=== PATIENT | female | born 1960 | race American Indian/Alaskan Native ===

== ENCOUNTER 2016-12-29 14:07 | Outpatient (CLI) | payer BC ==
--- NOTE | 2016-12-30 08:02 | Mammography Report ---
BILATERAL DIGITAL SCREENING MAMMOGRAM with CAD: 12/29/16 14:07:00 CLINICAL: Routine screening. COMPARISON:06/21/14 left mammogram. FINDINGS: The breasts are almost entirely fatty. No mass, architectural distortion or suspicious calcifications. IMPRESSION: No mammographic evidence of malignancy. BI-RADS CATEGORY: 1 - - Negative RECOMMENDATION: Routine mammographic screening in one year. COMMENT: Patient follow-up letters are generated by our [employer] application.
== END 2016-12-29 14:08 | disposition home or self-care (01) ==
LOC: MAMMO 14:07
PROVIDERS: ATTEND Internal Medicine
DX: Z12.31 Encounter for screening mammogram for malignant neoplasm of breast (principal)
CPT/HCPCS: 77067; G0202

== ENCOUNTER 2018-02-15 12:23 | Outpatient (CLI) | payer BC ==
--- NOTE | 2018-02-15 14:23 | Mammography Report ---
BILATERAL DIGITAL SCREENING MAMMOGRAM with CAD: 02/15/18 12:23:00 CLINICAL: Routine screening. COMPARISON:12/29/16 FINDINGS: The breasts are mostly fatty. No mass, architectural distortion or suspicious calcifications. IMPRESSION: No mammographic evidence of malignancy. BI-RADS CATEGORY: 1 - - Negative RECOMMENDATION: Routine mammographic screening in one year. COMMENT: Patient follow-up letters are generated by our [employer] application.
== END 2018-02-15 12:24 | disposition home or self-care (01) ==
LOC: MAMMO 12:23
PROVIDERS: ATTEND Internal Medicine
DX: Z12.31 Encounter for screening mammogram for malignant neoplasm of breast (principal)
CPT/HCPCS: 77067

== ENCOUNTER 2019-03-08 13:36 | Outpatient (CLI) | payer BC ==
--- NOTE | 2019-03-09 09:05 | Mammography Report ---
BILATERAL DIGITAL SCREENING MAMMOGRAM with CAD: 03/08/19 13:36:00 CLINICAL: Routine screening. COMPARISON:02/15/18 FINDINGS: The breasts are almost entirely fatty. No mass, architectural distortion or suspicious calcifications. IMPRESSION: No mammographic evidence of malignancy. BI-RADS CATEGORY: 1 - - Negative RECOMMENDATION: Routine mammographic screening in one year. COMMENT: Patient follow-up letters are generated by our [employer] application.
== END 2019-03-08 13:37 | disposition home or self-care (01) ==
LOC: MAMMO 13:36
PROVIDERS: ATTEND Family Medicine
DX: Z12.31 Encounter for screening mammogram for malignant neoplasm of breast (principal)
CPT/HCPCS: 77067

== ENCOUNTER 2020-05-31 12:53 | Outpatient (CLI) | payer BC ==
[2020-05-31 13:55] LABS: Eosinophils # (Auto) 0.2 K/mm3 (0.0-0.4); Eosinophils % (Auto) 2.2 % (0.0-4.3); Hematocrit 29.3 % (30.3-42.9); Hemoglobin 9.5 gm/dl (10.1-14.3); Mean Corpuscular HGB Conc 32 % (30-34); Mean Corpuscular Volume 77 fl (79-97); Monocytes # (Auto) 0.5 K/mm3 (0.0-0.8); Platelet Count 523 K/mm3 (140-440); Red Blood Count 3.79 M/mm3 (3.65-5.03); Red Cell Distribution Width 18.1 % (13.2-15.2)
[2020-05-31 13:57] LABS: Lymphocytes % (Auto) 7.1 % (13.4-35.0)
[2020-05-31 13:58] LABS: Basophils % (Auto) 0.5 % (0.0-1.8); Lymphocytes # (Auto) 0.7 K/mm3 (1.2-5.4); Monocytes % (Auto) 4.3 % (0.0-7.3)
[2020-05-31 14:43] LABS: Erythrocyte Sedimentation Rate 62 mm/Hr (0-20)
== END 2020-05-31 12:54 | disposition home or self-care (01) ==
LOC: LAB 12:53
PROVIDERS: ATTEND Specialist
DX: G95.9 Disease of spinal cord, unspecified (principal)
CPT/HCPCS: 36415; 85025; 85652; 86140; 86592